=== PATIENT | female | born 1935 | race Caucasian/White ===

== ENCOUNTER 2017-05-02 09:49 | Day surgery (SDC) | payer OTHER ==
[~2017-05-02] VITALS: Ht 162.6 cm; Wt 57.2 kg
[~2017-05-02 09:49] MED LIST: AFRIN,GENASAL D15 ML BOTH NARES; ALEVE220 M2 PO; ALEVE220 MG PO; ASPIR-LOW81 MG PO; CELLCEPT250 MG PO; CHOLESTYRAMINE P4 GM PO; CLARITIN,ALAVAR10 MG PO; ERGOCALCIF50000 UNIT PO; FISH OIL 1,0001 EAC7 PO; FISH OIL500 MG PO; K-DUR20 MEQ PO; KEFLEX500 MG PO; LEXAPRO10 MG PO; MESTINON180 MG PO; MESTINON60 MG PO; PREDNISONE10 MG PO; PREVACID30 MG PO; PRILOSEC40 MG PO; PRIVIGEN 110 GM/100 IV; PROAIR HFA8.5 GM IH; PROTONIX40 MG PO; PYRIDOSTIGMINE60 MG; ROBITUSSIN AC,T10 ML PO; SLOW-MAG,MAG DE64 MG PO; SYNTHROID; SYNTHROID100 MCG PO; SYNTHROID25 MCG PO; VITAMIN D-32000 UNIT PO; VITAMIN D2000 UNIT PO; VITAMIN D32000 UNI1 PO; ZOCOR10 MG PO; ZOCOR5 MG PO; ZYRTEC10 M2 PO
[2017-05-02 10:25] VITALS: BP 138/58
[2017-05-02 11:33] LABS: ANION GAP 5 MEQ/L (2-14); CHLORIDE 110 MEQ/L (99-109); MAGNESIUM 1.3 mg/dl (1.3-2.7); POTASSIUM 3.9 MEQ/L (3.7-5.4); SAMPLE HEMOLYSIS CHECK 0; SAMPLE ICTERIC CHECK 0; SAMPLE LIPEMIA CHECK 0; SODIUM 137 MEQ/L (136-147)
[2017-05-02 11:38] LABS: GFR ESTIMATE (CALCULATED) > 59 mL/min/; GLUCOSE 88 mg/dL (70-99); UREA NITROGEN (BUN) 18 mg/dL (9-23)
[2017-05-02 15:18] VITALS: BP 109/55
[2017-05-02 16:15] VITALS: BP 140/60
== END 2017-05-02 16:25 | disposition home or self-care (01) ==
LOC: SDC 09:49
PROVIDERS: Surgery
DX: K80.40 Calculus of bile duct with cholecystitis, unspecified, without obstruction (principal); G70.01 Myasthenia gravis with (acute) exacerbation; E78.5 Hyperlipidemia, unspecified; E03.9 Hypothyroidism, unspecified; F41.1 Generalized anxiety disorder; Z85.3 Personal history of malignant neoplasm of breast; Z80.3 Family history of malignant neoplasm of breast; Z88.0 Allergy status to penicillin; Z88.2 Allergy status to sulfonamides; K21.0 Gastro-esophageal reflux disease with esophagitis
CPT/HCPCS: 74300; 76000; 80048; 83735; 84100; 88304; C1725; C1769; C1894; J1885; J2405; J3010; S0020